=== PATIENT | female | born 1960 | race Caucasian/White ===

== ENCOUNTER → 2016-04-12 | Outpatient (CLI) | payer OTHER, BC | LOC: FIMAGING 12:01 | PROVIDERS: ATTEND Internal Medicine Hematology & Oncology | DX: Z12.31 Encounter for screening mammogram for malignant neoplasm of breast (principal); Z80.3 Family history of malignant neoplasm of breast | CPT/HCPCS: G0202 ==

== ENCOUNTER 2016-10-10 09:32 | Inpatient (IN) | payer BC, OTHER ==
[~2016-10-10 09:32] MED LIST: cefOXitin SODIUM 2 GM in D5W 100 ML IV ONE
[2016-10-10] MEDS ORDERED: LIDOCAINE 1% 2 ML INJ ID PRN (10:01)
[2016-10-10] MEDS ORDERED: LR 1,000 ML IV ONE (10:01)
--- NOTE | 2016-10-10 10:34 | PDHPUP ---
History & Physical Update H&P update statement: This history and physical update is based on an assessment of the patient which was completed after admission or registration (within 24 hours), but prior to the surgery/procedure. H&P update: H&P reviewed & patient examined, no change in patient's condition since H&P completed
[2016-10-10] MEDS: NICOTINE 14 MG/24 HR PATCH TD SCH (10:49)
[2016-10-10 11:16] LABS: ADD DIFF? YES; ADD MORPH? NO; ADD SCAN? NO; ATYPICAL LYMPHOCYTE FLAG 0 (0-99); FRAGMENT RBC FLAG 0 (0-99); HEMATOCRIT 45.3 % (38.0-47.0); HEMOGLOBIN 15.5 g/dL (12.6-16.3); LEFT SHIFT FLG 0 (0-99); LIPEMIA HEMOLYSIS FLAG 90 (0-99); MEAN CELL HEMOGLOBIN 33.3 pg (27.9-34.1); MEAN CELL HEMOGLOBIN CONCENTR. 34.2 g/dL (32.4-36.7); MEAN CELL VOLUME 97.2 fL (81.5-99.8); MEAN PLATELET VOLUME 10.2 fL (8.7-11.7); PLATELET CLUMPS FLAG 10 (0-99); PLATELET COUNT 259 10^3/uL (150-400); RED BLOOD CELL COUNT 4.66 10^6/uL (4.18-5.33); RED CELL DISTRIBUTION WIDTH 14.6 % (11.5-15.2)
[2016-10-10 11:35] LABS: ALANINE AMINOTRANSFERASE 56 IU/L (9-52); ALBUMIN 4.8 g/dL (3.5-5.0); ALKALINE PHOSPHATASE 128 IU/L (38-126); ANION GAP 15 mEq/L (8-16); ASPARTATE AMINOTRANSFERASE 31 IU/L (14-46); BILIRUBIN,TOTAL 0.8 mg/dL (0.1-1.4); CALCIUM 10.1 mg/dL (8.5-10.4); CARBON DIOXIDE 21 mEq/l (22-31); CHLORIDE 106 mEq/L (97-110); CREATININE 0.5 mg/dL (0.6-1.0); GLOMERULAR FILTRATION RATE > 60; GLUCOSE 141 mg/dL (70-100); SODIUM 142 mEq/L (134-144); TOTAL PROTEIN 7.9 g/dL (6.3-8.2)
[2016-10-10 11:46] LABS: PLATELET ESTIMATE ADEQUATE (ADEQ)
--- NOTE | 2016-10-10 12:00 | PDANEPAE ---
ANE History of Present Illness multiple GIST tumors ANE Past Medical History - Cardiovascular History Hx Hypertension: No Hx Arrhythmias: No Hx Chest Pain: No Hx Coronary Artery / Peripheral Vascular Disease: No Hx CHF / Valvular Disease: No Hx Palpitations: No - Pulmonary History Hx COPD: No Hx Asthma/Reactive Airway Disease: No Hx Recent Upper Respiratory Infection: No Hx Oxygen in Use at Home: No Hx Sleep Apnea: No Sleep Apnea Screening Result - Last Documented: Negative - Neurologic History Hx Cerebrovascular Accident: No Hx Seizures: No Hx Dementia: No Neurologic History Comment: FIBROMYALGIA. 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 24 YEARS AGO [facility] - Other Health History Other Health History: RASH UNDER BOTH BREASTS - Chronic Pain History Chronic Pain: Yes (FIBROMYALGIA,NEEUROPATHY IN FEET &HANDS,BILAT HIP PAIN) - Surgical History Prior Surgeries: 1996 HYSTERECTOMY. 2010 REMOVAL OF ABDOMINAL TUMOR BY DR JAMA AND 2013 ANE Review of Systems Review of systems is: negative - Exercise capacity Exercise capacity: >=4 METS METS (RN): 4 METS ANE Patient History - Allergies Allergies/Adverse Reactions: gabapentin Allergy (Severe, Verified 10/06/16 16:16) ANASARCA shellfish derived Allergy (Verified 10/10/16 10:43) - Home Medications Home Medications: Multivitamins [Multivitamin (*)] 07/14/13 [Last Taken 09/29/16] Fentanyl 10/06/16 [Last Taken 10/08/16 15:00] SUBOXONE 2 MG-0.5 MG TABLET 10/06/16 [Last Taken 10/07/16] Tasigna 10/06/16 [Last Taken 10/10/16 04:10] - NPO status NPO Since - Liquids (Date): 10/10/16 NPO Since - Liquids (Time): 04:30 NPO Since - Solids (Date): 10/09/16 NPO Since - Solids (Time): 12:00 - Anes Hx Anes Hx: no prior problems - Smoking Hx Smoking Status: Heavy smoker - Alcohol Use Alcohol Use: None - Family Anes Hx Family Hx Anesthesia Complications: NONE ANE Labs/Vital Signs - Labs Result Diagrams: 10/10/16 11:05 10/10/16 11:05 - Vital Signs Blood Pressure: 142/84 Heart Rate: 81 Respiratory Rate: 20 O2 Sat (%): 95 Height: 175.26 cm Weight: 107.955 kg ANE Physical Exam - Airway Neck exam: FROM Mallampati Score: Class 2 Mouth exam: dentures - Pulmonary Pulmonary: no respiratory distress - Cardiovascular Cardiovascular: regular rate and rhythym - ASA Status ASA Status: III ANE Anesthesia Plan Anesthesia Plan: general endotracheal anesthesia Regional Anesthesia: continuous NB (CTE)
[2016-10-10] MEDS ORDERED: MIDAZOLAM 2 MG/2 ML VIAL IVP ONE (12:05)
[2016-10-10] MEDS ORDERED: fentaNYL 100 MCG/2 ML INJ ONE ×6 (12:09→18:33)
[2016-10-10] MEDS ORDERED: BUPIVACAINE 0.5% 30 ML SDV ONE (12:15)
[2016-10-10] MEDS ORDERED: BACITRACIN 50,000 UNITS/10 ML SYR IRR ONE (12:15)
[2016-10-10] MEDS ORDERED: POLYMYXIN B SULFATE 500,000 UNIT/10 ML SYR IRR ONE (12:15)
[2016-10-10] MEDS ORDERED: LIDOCAINE 2% 100 MG/5 ML SYR ONE (13:55)
[2016-10-10] MEDS ORDERED: ROCURONIUM 100 MG/10 ML VIAL ONE (13:55)
[2016-10-10] MEDS ORDERED: PROPOFOL 200 MG/20 ML VIAL ONE (13:56)
[2016-10-10] MEDS ORDERED: DEXAMETHASONE 4 MG/ML VIAL ONE (14:50)
[2016-10-10] MEDS ORDERED: HYDROmorphONE/DILAUDID 2 MG/ML INJ ONE (14:56)
[2016-10-10] MEDS ORDERED: BUPIVACAINE 0.25% 30 ML SDV ONE (15:11)
[2016-10-10] MEDS ORDERED: AMINOCAPROIC ACID 5 GM/20 ML VIAL IV ONE (15:30)
[2016-10-10] MEDS ORDERED: ROCURONIUM 50 MG/5 ML VIAL ONE (16:53)
[2016-10-10] MEDS ORDERED: PHENYLEPHRINE HCL 100 MCG/ML SYR ONE ×2 (16:53)
[2016-10-10] MEDS ORDERED: VASOPRESSIN 20 UNIT/ML VIAL ONE (16:57)
[2016-10-10] MEDS ORDERED: ONDANSETRON 4 MG/2 ML VIAL ONE (17:36)
[2016-10-10] MEDS ORDERED: HYDROmorphONE/DILAUDID 1 MG/ML INJ IVP PRN (17:56)
[2016-10-10] MEDS ORDERED: LABETALOL HCL 5 MG/ML 20 ML MDV IVP PRN (17:56)
[2016-10-10] MEDS ORDERED: fentaNYL 100 MCG/2 ML INJ IVP PRN (17:56)
[2016-10-10] MEDS ORDERED: ALBUTEROL 3 ML DEYVIAL IH PRN (17:56)
[2016-10-10] MEDS ORDERED: PROMETHAZINE HCL 25 MG/ML INJ IVP PRN (17:56)
[2016-10-10] MEDS ORDERED: NALOXONE HCL 0.4 MG/ML INJ IVP PRN ×2 (17:56→17:58)
[2016-10-10] MEDS ORDERED: MEPERIDINE 25 MG/ML SYR IVP PRN (17:56)
[2016-10-10] MEDS ORDERED: ONDANSETRON 4 MG/2 ML VIAL IVP PRN ×2 (17:56→18:04)
[2016-10-10] MEDS ORDERED: NARCOTIC DRIP BAG-TOTAL ALL TYPES EP PRN (17:58)
[2016-10-10] MEDS ORDERED: diphenhydrAMINE 25 MG CAP PO PRN (18:04)
--- NOTE | 2016-10-10 18:39 | POSTOPPROG ---
Post Op Note Date of Operation: 10/10/16 Surgeon: Marlon Reynolds Wax Blender: FAITH Anesthesiologist: JESUS Anesthesia: GET(General Endotracheal) Pre-op Diagnosis: GIST TUMOR OF ABDOMEN, RECURRENT Post-op Diagnosis: SAME Indication: PAIN, NONRESPONSIVE TO CHEMO Procedure: RESECTION OF MESENTERIC GIST TUMOR WITH DISSECTION AND PRESERVATION OF SMA/ Findings: 25 CM MASS IN ROOT OF MESENTERY INVOLVING SMALL BOWELL Inf/Abcess present in the surg proc area at time of surgery?: No Depth: Organ Space EBL: Greater than 1000 Complications: 0 Drains: Wilfredo Rai Specimen(s): MESENTERIC TUMOR AND SMALL INTESTINE
--- NOTE | 2016-10-10 18:51 | POSTANESTH ---
Post Anesthetic Evaluation Cardiovascular Status: Tx Hyper/Hypo-tension Respiratory Status: Normal, Stable Level of Consciousness/Mental Status: Can Participate in Eval Pain Control: Adequate, Prn Tx Ordered Nausea/Vomiting Control: Adequate, Prn Tx Ordered Complications Possibly Related to Anesthesia: None Noted (bolusing fluid, checkin cbc for hypotension)
[2016-10-10 18:54] LABS: HEMATOCRIT 29.5 % (38.0-47.0); HEMOGLOBIN 9.1 g/dL (12.6-16.3); MEAN CELL HEMOGLOBIN 32.7 pg (27.9-34.1); MEAN CELL HEMOGLOBIN CONCENTR. 30.8 g/dL (32.4-36.7); MEAN CELL VOLUME 106.1 fL (81.5-99.8); RED BLOOD CELL COUNT 2.78 10^6/uL (4.18-5.33); RED CELL DISTRIBUTION WIDTH 14.6 % (11.5-15.2)
[2016-10-10] MEDS: D5W 1/2 NS W/ 20 KCl/L 1,000 ML IV SCH (21:30)
[2016-10-10] MEDS: METOCLOPRAMIDE 10 MG/2 ML VIAL IVP SCH (23:43)
[2016-10-11] MEDS: D5W 1/2 NS W/ 20 KCl/L 1,000 ML IV SCH (05:28)
--- NOTE | 2016-10-11 05:49 | GOP ---
[f rep st] OPERATIVE REPORT DATE OF OPERATION: 10/10/2016 SURGEON: Marlon Reynolds MD FACILITIES OPERATIONS TECHNICIAN: SARAY Jiménez ANESTHESIOLOGIST: Dr. Ashford. 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 POSTOPERATIVE DIAGNOSIS: Recurrent GIST tumor of the abdomen with pain. PROCEDURE PERFORMED: Resection of a massive mesenteric tumor with associated small bowel with dissection and preservation of the superior mesenteric artery and ventral hernia repair. FINDINGS: The patient was found to have a 25 cm multilobulated GIST tumor arising from the root of the mesentery involving the proximal small bowel near the ligament of Treitz and associated with an area that had a previous resection. It was separate from the superior mesenteric artery. There were some other intraabdominal nodules consistent with GIST tumors and some liver METS consistent with GIST tumors. DESCRIPTION OF PROCEDURE: Patient taken to the operating room where she received satisfactory general endotracheal anesthesia by Dr. Ashford, placed in the supine position. She also had an epidural placed. A midline abdominal incision was made and carried carefully through a previous old incision. Two separate ventral hernias were encountered and these were dissected free and reduced. Omentum was taken down. The abdomen was carefully entered until the omentum was completely free and could be eviscerated. The small bowel was eviscerated and tumor was identified in the root of the mesentery. Tumor was elevated up and the superior mesenteric artery was identified, appeared to be separate from the tumor, although close. The tumor was elevated up. The mesentery was opened. The tumor was freed up from the small bowel mesentery including up to the area of the ligament of Treitz. Tumor was dissected off the transverse mesocolon without any evidence of invasion of the mesocolon. The colon was preserved and intact. Tumor was freed up circumferentially and elevated up as much as possible. It was carefully dissected away from the superior mesenteric artery using the Harmonic Scalpel and/or vascular staplers until the tumor could be elevated above the retroperitoneum. The small bowel was then divided proximally near the ligament of Treitz and distally below the tumor. This was done with a BHAVIN stapler. Specimen was removed. Hemostasis was assured. Multiple mesenteric vessels were oversewn with 3-0 silk sutures for hemostasis, and the bowel remained viable with a good pulse in the mesenteric vessels and good Doppler flow in the small bowel wall. An additional short piece of small bowel was removed with a BHAVIN stapler to assure the best vascularity. Wound was copiously irrigated. Hemostasis was assured. Small bowel anastomosis was then done in an end-to-side manner in 2 layer fashion with 3-0 silks for the anterior and posterior layers and a running inner layer of 3-0 Vicryl. This anastomosis was right at the ligament of Treitz and involved some bowel that was previously resected. There was excellent bleeding at the transection point. Anastomosis created a good 2 fingerbreadth opening. Wound was again irrigated. Hemostasis was assured. No other major findings were encountered. She tolerated procedure well. Blood loss was significant, approximately 1500 cc. A 15 round silicone CAMPOS drain was brought out through separate stab incision and placed adjacent to the root of the mesentery and secured to the skin with a 2-0 silk suture. Fascia was closed with a running #1 PDS suture. The subcu drain was brought out through a separate stab incision and secured to the skin with silk suture and the skin was closed with skin deborah. She tolerated the procedure reasonably well, was taken to the recovery room in good condition. There were no complications. Blood loss was 1500 mL. /[id number]/MODL MTDD
[2016-10-11 06:09] LABS: ADD DIFF? YES; ADD MORPH? NO; ATYPICAL LYMPHOCYTE FLAG 0 (0-99); FRAGMENT RBC FLAG 0 (0-99); HEMATOCRIT 37.1 % (38.0-47.0); HEMOGLOBIN 12.7 g/dL (12.6-16.3); LEFT SHIFT FLG 30 (0-99); LIPEMIA HEMOLYSIS FLAG 90 (0-99); MEAN CELL HEMOGLOBIN 32.6 pg (27.9-34.1); MEAN CELL HEMOGLOBIN CONCENTR. 34.2 g/dL (32.4-36.7); MEAN CELL VOLUME 95.1 fL (81.5-99.8); MEAN PLATELET VOLUME 10.6 fL (8.7-11.7); PLATELET CLUMPS FLAG 10 (0-99); PLATELET COUNT 253 10^3/uL (150-400); RED CELL DISTRIBUTION WIDTH 17.2 % (11.5-15.2)
[2016-10-11 06:13] LABS: ADD SCAN? NO
[2016-10-11 06:25] LABS: PLATELET ESTIMATE ADEQUATE (ADEQ)
[2016-10-11 06:26] LABS: TOXIC GRANULATION PRESENT
[2016-10-11 06:28] LABS: ALANINE AMINOTRANSFERASE 109 IU/L (9-52); ALBUMIN 2.6 g/dL (3.5-5.0); ALKALINE PHOSPHATASE 100 IU/L (38-126); ANION GAP 8 mEq/L (8-16); ASPARTATE AMINOTRANSFERASE 122 IU/L (14-46); BILIRUBIN,TOTAL 1.7 mg/dL (0.1-1.4); BILIRUBIN-UNCONJUGATED 0.7 mg/dL (0.0-1.1); CARBON DIOXIDE 16 mEq/l (22-31); CHLORIDE 113 mEq/L (97-110); CREATININE 0.9 mg/dL (0.6-1.0); GLOMERULAR FILTRATION RATE > 60; GLUCOSE 238 mg/dL (70-100); POTASSIUM 5.5 mEq/L (3.5-5.2); SODIUM 137 mEq/L (134-144); TOTAL PROTEIN 4.9 g/dL (6.3-8.2)
[2016-10-11 06:29] LABS: ADD DIFF? YES; ADD MORPH? NO; ATYPICAL LYMPHOCYTE FLAG 0 (0-99); FRAGMENT RBC FLAG 0 (0-99); HEMATOCRIT 35.2 % (38.0-47.0); HEMOGLOBIN 11.2 g/dL (12.6-16.3); LEFT SHIFT FLG 10 (0-99); LIPEMIA HEMOLYSIS FLAG 80 (0-99); MEAN CELL HEMOGLOBIN 32.1 pg (27.9-34.1); MEAN CELL HEMOGLOBIN CONCENTR. 31.8 g/dL (32.4-36.7); MEAN CELL VOLUME 100.9 fL (81.5-99.8); MEAN PLATELET VOLUME 11.7 fL (8.7-11.7); PLATELET CLUMPS FLAG 30 (0-99); PLATELET COUNT 117 10^3/uL (150-400); RED BLOOD CELL COUNT 3.49 10^6/uL (4.18-5.33); RED CELL DISTRIBUTION WIDTH 17.9 % (11.5-15.2)
[2016-10-11 06:31] LABS: ADD SCAN? NO
[2016-10-11] MEDS: METOCLOPRAMIDE 10 MG/2 ML VIAL IVP SCH ×3 (06:50→17:50)
[2016-10-11 07:00] LABS: PLATELET ESTIMATE DECREASED (ADEQ)
[2016-10-11 07:01] LABS: MACROCYTES 1+
[2016-10-11] MEDS: HYDROmorph 10MCG/ML&BUP 0.1% in 100ML NS EP SCH ×2 (07:36→21:11)
[2016-10-11 07:39] LABS: INR 1.11 (0.83-1.16); PROTIME(PATIENT) 14.2 SEC (12.0-15.0)
[2016-10-11] MEDS: ERTAPENEM 1 GM in NS 100 ML IV SCH (08:55)
[2016-10-11] MEDS: NICOTINE 14 MG/24 HR PATCH TD SCH (08:55)
[2016-10-11] MEDS: DC NARCS MISC SCH (08:58)
[2016-10-11] MEDS: REGARDING ANTICOAG MISC SCH (08:58)
--- NOTE | 2016-10-11 09:25 | POSTANESTH ---
Post Anesthetic Evaluation Cardiovascular Status: Normal, Stable Respiratory Status: Normal, Stable Level of Consciousness/Mental Status: Can Participate in Eval Pain Control: Adequate, Prn Tx Ordered Nausea/Vomiting Control: Adequate, Prn Tx Ordered Complications Possibly Related to Anesthesia: None Noted (POD1, excellent PCEA analgesia, no changes, hypotension resolved after 2 units PRBC, would encourage ambulation/mobilization. Have cautioned RN to watch for S/S or opiate withdrawl. Anticipate 3-4 days PCEA duration.)
[2016-10-11] MEDS: NS 1,000 ML IV SCH ×2 (09:35→17:43)
--- NOTE | 2016-10-11 16:37 | GCON ---
[f rep st] CONSULTATION CRITICAL CARE CONSULTATION DATE OF CONSULTATION: 10/11/2016 HISTORY OF PRESENT ILLNESS: The patient is a 56-year-old obese female, who has been having difficult y with a GIST tumor that has been unresponsive to chemotherapy and was causing significant abdominal pain. Subsequently, she underwent resection of a 25 cm tumor for palliative purposes yesterday by Dr Debbie Reynolds. Surgery was complicated by significant blood loss with an EBL estimated at greater than 100 0. She received 2 units of pack cells, though she did experience some hypotension. Subsequently, darrian currie recovered and did not require ongoing pressors. Today, she says her pain is well controlled, and her blood pressure has normalized and she is not hav ing any other difficulties at this time. REVIEW OF SYSTEMS: Otherwise negative. PAST MEDICAL HISTORY: Includes the GIST tumor as described above, fibromyalgia. PAST SURGICAL HISTORY: Includes remote bowel resections, cholecystectomy, and hysterectomy. SOCIAL HISTORY: She is a remote smoker but none recently. No significant alcohol. FAMILY HISTORY: Includes breast cancer. MEDICATIONS: At this time include ertapenem, Dilaudid, Reglan, Zofran, normal saline. PHYSICAL EXAMINATION: VITAL SIGNS: Her blood pressure was 104/67, heart rate was 112, respirations 13, oxygen saturation 94% on 2 L, and she was afebrile. GENERAL: She was awake and alert, in no gerald arent distress, and able to speak in full sentences without using accessory muscles for breathing. H EENT: Pupils were equally round, reactive to light, nonicteric, and noninjected. Mucous membranes w ere moist without erythema or exudate. NECK: Supple without adenopathy or jugular vein distention. LUNGS: Breath sounds were clear to auscultation bilaterally without wheezes, rubs, or rales. HEART : Sounds were distant, but are regular rate and rhythm without murmurs, rubs, or gallops. ABDOMEN: Soft and nondistended with hypoactive bowel sounds. EXTREMITIES: Show no clubbing, cyanosis, or ed betzaida. NEUROLOGIC: Nonfocal, including cranial nerves and deep tendon reflexes. OBJECTIVE DATA: Her white count was 43.6, hematocrit of 35, platelets of 117. INR 1.11. Sodium was 137, potassium 5.5, chloride 113, bicarb 16, BUN 16, creatinine 0.9, glucose 238. Total bilirubin 1 .7, alkaline phosphatase was 100, AST 122, ALT 109. ASSESSMENT AND PLAN: 1. Hypotension in a postoperative patient likely due to blood loss. Little is here to support acute coronary syndromes or adrenal insufficiency or sepsis. She recovered quickly with blood products an d IV fluids and has adequate urine output at this time. Should continue to follow her in the intensi ve care unit. 2. Elevated white blood cell count. Presumably this is related to her surgery and complications the reof. Her white count has come down nicely. She is on ertapenem for broad-spectrum coverage. Blood cultures are pending, but negative to date. Should recheck this in the morning. 3. Relative thrombocytopenia. This is probably due to consumptive coagulopathy and should recover o n its own but will have to follow this closely. 4. Elevated liver enzymes. This is likely due to her hypotension as it is only very mildly elevated but requires ongoing followup. /[id number]/MODL
--- NOTE | 2016-10-11 17:46 | SOAPPROG ---
SOAP Progress Note Assessment/Plan: Assessment/Plan: 56 Y F s/p laparotomy with resection of large LUQ GIST tumor requiring small bowel resection, POD#1. Seen by both myself and Dr. Reynolds earlier today on separate occasions. NG was "coughed out" this am. Patient refusing replacement. Has no N/V. Tachycardic this am. Improved. 2/2 pain? H&H ok, uop ok, O2 needs ok. Continue to follow. Pain seems controlled with epidural. Continue min until epidural removal. No chemical VTE ppx--bleeding risk, epidural. Hyperkalemia. Changed IVF to NS. Wounds ok. Drains serosanguinous. One drain with high output now slowed--likely residual irrigation fluid, did not appear very sanguinous. S: sitting oob in chair. no n/v. thinks she had flatus. eager for ice chips. 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
[2016-10-12] MEDS: METOCLOPRAMIDE 10 MG/2 ML VIAL IVP SCH ×5 (00:09→23:45)
[2016-10-12] MEDS: NS 1,000 ML IV SCH ×2 (00:10→08:21)
[2016-10-12] MEDS: HYDROmorph 10MCG/ML&BUP 0.1% in 100ML NS EP SCH ×2 (06:07→11:18)
--- NOTE | 2016-10-12 08:41 | SOAPPROG ---
SOAP Progress Note Assessment/Plan: Assessment: 56 Y F s/p laparotomy with resection of large LUQ GIST tumor requiring small bowel resection, POD#2. NGT out last night per patient. She is refusing replacement. No nausea or vomiting. Tolerating ice chips and sips. Adv to clears Continues to be tachycardic today. Most likely secondary to pain. H/H ok, UOP ok , O2 needs ok. Cont pain control with IV dilauded and epidural SCD ppx. No chemical ppx 2/2 bleeding risk and epidural Wounds with clean/dry dressing intact. Cont CAMPOS drains. S: sitting up in chair. passing flatus, no BM. Tolerating ice chips without N/ V. No SOB. Complaining of some itchiness which she attributes to a tape sensitivity. Some back pain and incisional pain. O: Afebrile Alert, NAD Lungs CTAB, no increased WOB RRR MMM Abdomen soft. Appropriately TTP along incision. + BS [address] Emptied right before she was seen. 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
[2016-10-12] MEDS: NICOTINE 14 MG/24 HR PATCH TD SCH (09:03)
[2016-10-12] MEDS: ERTAPENEM 1 GM in NS 100 ML IV SCH (09:38)
--- NOTE | 2016-10-12 09:56 | POSTANESTH ---
Post Anesthetic Evaluation Cardiovascular Status: Normal, Stable Respiratory Status: Normal, Stable Level of Consciousness/Mental Status: Can Participate in Eval Pain Control: Inadeq, Add Tx Required Nausea/Vomiting Control: Adequate, Prn Tx Ordered Complications Possibly Related to Anesthesia: None Noted (POD 2, pt with worse pain cpntrol, will bolus epidural and increase basal rate. plan removal tomorrow. Site C/d/i)
[2016-10-12] MEDS: HYDROmorphONE/DILAUDID 2 MG/ML INJ IVP PRN ×3 (13:14→21:41)
[2016-10-12] MEDS: DC NARCS MISC SCH (13:59)
[2016-10-12] MEDS: REGARDING ANTICOAG MISC SCH (14:00)
[2016-10-12 15:00] LABS: ANION GAP 6 mEq/L (8-16); CALCIUM 6.8 mg/dL (8.5-10.4); CARBON DIOXIDE 17 mEq/l (22-31); CHLORIDE 115 mEq/L (97-110); CREATININE 0.4 mg/dL (0.6-1.0); GLOMERULAR FILTRATION RATE > 60; GLUCOSE 148 mg/dL (70-100); POTASSIUM 3.4 mEq/L (3.5-5.2); SODIUM 138 mEq/L (134-144)
[2016-10-13] MEDS: HYDROmorph 10MCG/ML&BUP 0.1% in 100ML NS EP SCH ×4 (01:07→23:18)
[2016-10-13] MEDS: NS 1,000 ML IV SCH ×3 (02:26→20:46)
[2016-10-13] MEDS: METOCLOPRAMIDE 10 MG/2 ML VIAL IVP SCH ×4 (05:52→23:18)
[2016-10-13] MEDS: HYDROmorphONE/DILAUDID 2 MG/ML INJ IVP PRN ×2 (05:53→09:07)
[2016-10-13] MEDS: NICOTINE 14 MG/24 HR PATCH TD SCH (09:07)
[2016-10-13] MEDS: ERTAPENEM 1 GM in NS 100 ML IV SCH (09:08)
[2016-10-13] MEDS: DC NARCS MISC SCH (10:37)
[2016-10-13] MEDS: REGARDING ANTICOAG MISC SCH (10:37)
[2016-10-13] MEDS ORDERED: HYDROmorphONE/DILAUDID 1 MG/ML INJ IVP PRN (11:06)
[2016-10-13] MEDS: HYDROmorphONE/DILAUDID 1 MG/ML INJ IVP PRN ×2 (14:11→18:32)
[2016-10-13] MEDS ORDERED: ALTEPLASE 2 MG VIAL IVP PRN (17:22)
--- NOTE | 2016-10-13 17:39 | SOAPPROG ---
SOAP Progress Note Assessment/Plan: Assessment: DOING WELL POSTOP DAY 3. 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
[2016-10-13 21:07] LABS: % IMMATURE GRANULYOCYTES 0.9 % (0.0-1.1); ABSOLUTE IMMATURE GRANULOCYTES 0.18 10^3/uL (0.00-0.10); ABSOLUTE NRBC COUNT 0.03 10^3/uL (0-0.01); ADD DIFF? NO; ADD MORPH? NO; ADD SCAN? NO; ATYPICAL LYMPHOCYTE FLAG 10 (0-99); FRAGMENT RBC FLAG 0 (0-99); HEMATOCRIT 21.9 % (38.0-47.0); HEMOGLOBIN 7.4 g/dL (12.6-16.3); LEFT SHIFT FLG 0 (0-99); LIPEMIA HEMOLYSIS FLAG 90 (0-99); MEAN CELL HEMOGLOBIN 32.6 pg (27.9-34.1); MEAN CELL HEMOGLOBIN CONCENTR. 33.8 g/dL (32.4-36.7); MEAN CELL VOLUME 96.5 fL (81.5-99.8); MEAN PLATELET VOLUME 9.9 fL (8.7-11.7); NRBC-AUTO% 0.1 % (0.0-0.2); PLATELET CLUMPS FLAG 0 (0-99); PLATELET COUNT 168 10^3/uL (150-400); RED BLOOD CELL COUNT 2.27 10^6/uL (4.18-5.33); RED CELL DISTRIBUTION WIDTH 15.7 % (11.5-15.2)
[2016-10-13 21:50] LABS: ALANINE AMINOTRANSFERASE 193 IU/L (9-52); ALBUMIN 2.4 g/dL (3.5-5.0); ALKALINE PHOSPHATASE 74 IU/L (38-126); AMYLASE < 30 IU/L (30-110); ANION GAP 8 mEq/L (8-16); ASPARTATE AMINOTRANSFERASE 51 IU/L (14-46); BILIRUBIN,TOTAL 0.4 mg/dL (0.1-1.4); BILIRUBIN-CONJUGATED 0.3 mg/dL (0.0-0.5); BILIRUBIN-UNCONJUGATED 0.1 mg/dL (0.0-1.1); CALCIUM 7.9 mg/dL (8.5-10.4); CARBON DIOXIDE 26 mEq/l (22-31); CHLORIDE 106 mEq/L (97-110); CREATININE 0.5 mg/dL (0.6-1.0); GLOMERULAR FILTRATION RATE > 60; GLUCOSE 98 mg/dL (70-100); POTASSIUM 3.2 mEq/L (3.5-5.2); SODIUM 140 mEq/L (134-144); TOTAL PROTEIN 4.4 g/dL (6.3-8.2)
[2016-10-14] MEDS: NS 1,000 ML IV SCH (04:47)
[2016-10-14] MEDS: METOCLOPRAMIDE 10 MG/2 ML VIAL IVP SCH ×4 (05:53→23:54)
[2016-10-14] MEDS: HYDROmorph 10MCG/ML&BUP 0.1% in 100ML NS EP SCH (07:19)
--- NOTE | 2016-10-14 09:38 | SOAPPROG ---
SOAP Progress Note Assessment/Plan: Assessment: DOING WELL POSTOP DAY 3. / AFEBRILE / TOLERATING LIQUIDS/ WOUND OKAY/ ABDOMEN SOFT MINIMAL DRAINAGE PATH SHOWS GIST TUMOR Plan: ADVANCE DIET 10/13/16 17:37 10/14/16 09:37 DOING WELL/ TOLERATING PO/ JPS MINIMAL DRAINAGE/ AFEBRILE/ HCT22/ PLAN TX 2 UNITS Objective: Vital Signs Temp Pulse Resp BP Pulse Ox 37.2 C 96 18 127/76 H 99 10/14/16 08:00 10/14/16 08:00 10/14/16 08:00 10/14/16 08:00 10/14/16 08:00 Laboratory Results 10/13/16 21:00 10/13/16 21:00 10/13/16 10/14/16 10/15/16 05:59 05:59 05:59 Intake Total 3550 3101 1404 Output Total 2473 1805 1490 Balance 1077 1296 -86 PT 14.2 SEC (12.0-15.0) 10/11/16 06:05 INR 1.11 (0.83-1.16) 10/11/16 06:05 ICD10 Worksheet Patient Problems: Problems Problem Status Onset 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
--- NOTE | 2016-10-14 09:45 | POSTANESTH ---
Post Anesthetic Evaluation Cardiovascular Status: Normal, Stable Respiratory Status: Normal, Stable Level of Consciousness/Mental Status: Can Participate in Eval Pain Control: Adequate, Prn Tx Ordered Nausea/Vomiting Control: Adequate, Prn Tx Ordered Complications Possibly Related to Anesthesia: None Noted (POD 3, will D/C CTE today, oxy and IV dilaudid available, thanks for consult)
[2016-10-14] MEDS: NICOTINE 14 MG/24 HR PATCH TD SCH (10:08)
[2016-10-14] MEDS: oxyCODONE IR 5 MG TAB PO PRN ×4 (10:10→22:41)
[2016-10-14] MEDS: ERTAPENEM 1 GM in NS 100 ML IV SCH (10:11)
[2016-10-14] MEDS: DC NARCS MISC SCH (18:33)
[2016-10-14] MEDS: REGARDING ANTICOAG MISC SCH (18:33)
[2016-10-14] MEDS: HYDROmorphONE/DILAUDID 1 MG/ML INJ IVP PRN (20:45)
[2016-10-15] MEDS: HYDROmorphONE/DILAUDID 1 MG/ML INJ IVP PRN ×5 (01:02→19:58)
[2016-10-15] MEDS: oxyCODONE IR 5 MG TAB PO PRN ×5 (04:48→21:56)
[2016-10-15] MEDS: METOCLOPRAMIDE 10 MG/2 ML VIAL IVP SCH ×3 (05:31→17:55)
[2016-10-15] MEDS: NICOTINE 14 MG/24 HR PATCH TD SCH (08:26)
[2016-10-15] MEDS: ERTAPENEM 1 GM in NS 100 ML IV SCH (08:27)
--- NOTE | 2016-10-15 09:59 | SOAPPROG ---
SOAP Progress Note Assessment/Plan: Assessment: DOING WELL POSTOP DAY 3. / AFEBRILE / TOLERATING LIQUIDS/ WOUND OKAY/ ABDOMEN SOFT MINIMAL DRAINAGE PATH SHOWS GIST TUMOR Plan: ADVANCE DIET 10/13/16 17:37 10/14/16 09:37 DOING WELL/ TOLERATING PO/ JPS MINIMAL DRAINAGE/ AFEBRILE/ HCT22/ PLAN TX 2 UNITS 10/15/16 09:57 more pain today wo epidural/ wound ok/ afebrile/ vs stable/ labs stable/ drainage serous/ eating/ + flatus home 1-2 days Objective: Vital Signs Temp Pulse Resp BP Pulse Ox 37.4 C 83 20 115/72 94 10/15/16 07:32 10/15/16 07:32 10/15/16 07:32 10/15/16 07:32 10/15/16 07:32 Laboratory Results 10/13/16 21:00 10/13/16 21:00 10/14/16 10/15/16 10/16/16 05:59 05:59 05:59 Intake Total 3101 2904 Output Total 1805 4120 390 Balance 1296 -1216 -390 PT 14.2 SEC (12.0-15.0) 10/11/16 06:05 INR 1.11 (0.83-1.16) 10/11/16 06:05 ICD10 Worksheet Patient Problems: Problems Problem Status Onset 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
--- NOTE | 2016-10-15 17:05 | ASMTCMCOM ---
CM Note CM Note Notes: Spoke w/pt re; dc poc. PT/OT recommend SNF at this time. Discussed w/pt she prefers to go home w/homecare but will go to SNF if necessary. She will lydia w/, CM to f/u in am. Date Signed: 10/12/2016 03:10 PM Electronically Signed By:Lorraine White
--- NOTE | 2016-10-15 17:08 | ASMTCMCOM ---
CM Note CM Note Notes: Spoke w/pt re; SNF. would like CM to send referrals to [facility] in [place] and [facility] in [place]. Date Signed: 10/13/2016 05:29 PM Electronically Signed By:Lorraine White
[2016-10-16] MEDS: HYDROmorphONE/DILAUDID 1 MG/ML INJ IVP PRN ×3 (00:09→10:03)
[2016-10-16] MEDS: METOCLOPRAMIDE 10 MG/2 ML VIAL IVP SCH ×5 (00:09→23:10)
[2016-10-16] MEDS: oxyCODONE IR 5 MG TAB PO PRN ×5 (02:21→23:10)
[2016-10-16] MEDS: ERTAPENEM 1 GM in NS 100 ML IV SCH (08:09)
[2016-10-16] MEDS: NICOTINE 14 MG/24 HR PATCH TD SCH (08:09)
--- NOTE | 2016-10-16 09:34 | SOAPPROG ---
SOAP Progress Note Assessment/Plan: Assessment/Plan: 56 Y F s/p laparotomy with resection of large LUQ GIST tumor requiring small bowel resection. Overall doing quite well at this point. Pain control is biggest issue holding us back from d/c. I had a rj discussion with Abigail regarding her history of opioid abuse and suboxone plans. She is committed to her sobriety. She feels that she has a great support network via family, friends, her suboxone doctor, and her community at [facility]. I left a message for Dr. Moses ([phone]) to discuss a plan. For now I'd like to transition to all oral pain meds. We will try oxycodone CR for baseline and oxycodone IR for breakthrough. S: sitting oob in chair. c/o pain. 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
--- NOTE | 2016-10-16 09:37 | SOAPPROG ---
SOAP Progress Note Assessment/Plan: Assessment: 56 Y F s/p laparotomy with resection of large LUQ GIST tumor requiring small bowel resection, POD#4. Path demonstrating Gist tumor Cont light diet Will look into longer term pain control. Pt on suboxone for that past 2 years. Wounds with C/D/I Cont CAMPOS drains. Dispo: to rehab once pain better controlled without IV meds S: Passing flatus and BM. Tolerating diet. No SOB. In considerable pain today that she attributes to her large midline abd incision. O: Afebrile Alert, NAD Lungs CTAB, no increased WOB RRR MMM Abdomen soft. TTP along incision. + BS Incision c/d/i with deborah in place. dressing removed today and left to air. [address] 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
[2016-10-16] MEDS: oxyCODONE CR 15 MG TAB PO SCH ×2 (10:03→20:32)
--- NOTE | 2016-10-16 13:11 | ASMTCMCOM ---
CM Note CM Note Notes: Spoke with Jodi from [facility] who accepts patient. PASRR completed and faxed to facility. [facility]NOR tomorrow pending pain control. Spoke with patient who agrees with the plan. Date Signed: 10/16/2016 01:10 PM Electronically Signed By:Iliana Hartman
[2016-10-16 14:28] LABS: % IMMATURE GRANULYOCYTES 1.2 % (0.0-1.1); ABSOLUTE IMMATURE GRANULOCYTES 0.23 10^3/uL (0.00-0.10); ABSOLUTE NRBC COUNT 0.02 10^3/uL (0-0.01); ADD DIFF? NO; ADD MORPH? NO; ADD SCAN? NO; ATYPICAL LYMPHOCYTE FLAG 10 (0-99); FRAGMENT RBC FLAG 0 (0-99); HEMATOCRIT 28.9 % (38.0-47.0); HEMOGLOBIN 9.6 g/dL (12.6-16.3); LEFT SHIFT FLG 0 (0-99); LIPEMIA HEMOLYSIS FLAG 80 (0-99); MEAN CELL HEMOGLOBIN 31.5 pg (27.9-34.1); MEAN CELL HEMOGLOBIN CONCENTR. 33.2 g/dL (32.4-36.7); MEAN CELL VOLUME 94.8 fL (81.5-99.8); MEAN PLATELET VOLUME 9.9 fL (8.7-11.7); NRBC-AUTO% 0.1 % (0.0-0.2); PLATELET CLUMPS FLAG 0 (0-99); PLATELET COUNT 267 10^3/uL (150-400); RED BLOOD CELL COUNT 3.05 10^6/uL (4.18-5.33); RED CELL DISTRIBUTION WIDTH 15.4 % (11.5-15.2)
[2016-10-16 14:58] LABS: ALANINE AMINOTRANSFERASE 69 IU/L (9-52); ALBUMIN 2.7 g/dL (3.5-5.0); ALKALINE PHOSPHATASE 74 IU/L (38-126); ANION GAP 8 mEq/L (8-16); ASPARTATE AMINOTRANSFERASE 18 IU/L (14-46); BILIRUBIN,TOTAL 0.5 mg/dL (0.1-1.4); CALCIUM 8.3 mg/dL (8.5-10.4); CARBON DIOXIDE 28 mEq/l (22-31); CHLORIDE 103 mEq/L (97-110); CREATININE 0.5 mg/dL (0.6-1.0); GLOMERULAR FILTRATION RATE > 60; GLUCOSE 86 mg/dL (70-100); POTASSIUM 2.9 mEq/L (3.5-5.2); SODIUM 139 mEq/L (134-144); TOTAL PROTEIN 4.7 g/dL (6.3-8.2)
[2016-10-16 22:22] VITALS: RESP 18
[2016-10-17] MEDS: oxyCODONE IR 5 MG TAB PO PRN ×3 (03:25→11:14)
[2016-10-17] MEDS: METOCLOPRAMIDE 10 MG/2 ML VIAL IVP SCH ×2 (05:39→11:12)
[2016-10-17 08:23] VITALS: BP 146/91; PULSE 86; TEMP 98.3; O2SAT 94
[2016-10-17] MEDS: NICOTINE 14 MG/24 HR PATCH TD SCH (09:02)
[2016-10-17] MEDS: oxyCODONE CR 15 MG TAB PO SCH (09:02)
[2016-10-17] MEDS: ERTAPENEM 1 GM in NS 100 ML IV SCH (09:02)
[2016-10-17 09:31] LABS: ANION GAP 9 mEq/L (8-16); CALCIUM 8.8 mg/dL (8.5-10.4); CARBON DIOXIDE 28 mEq/l (22-31); CHLORIDE 102 mEq/L (97-110); CREATININE 0.5 mg/dL (0.6-1.0); GLOMERULAR FILTRATION RATE > 60; GLUCOSE 124 mg/dL (70-100); POTASSIUM 2.9 mEq/L (3.5-5.2); SODIUM 139 mEq/L (134-144)
--- NOTE | 2016-10-17 09:53 | SOAPPROG ---
SOAP Progress Note Assessment/Plan: Assessment/Plan: 56 Y F s/p laparotomy with resection of large LUQ GIST tumor requiring small bowel resection. Pain controlled. D/c drains. D/c to SNF today. S: sitting oob in chair. has pain but meds are helping. 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
--- NOTE | 2016-10-17 10:03 | PDIAF ---
- Diagnosis Diagnosis: s/p resection of massive abdominal GIST tumor Code Status: Full Code - Medication Management Discharge Medications: Medications to Continue on Transfer Multivitamins [Multivitamin (*)] 1 each PO DAILY 07/14/13 [Last Taken 09/29/16] Nilotinib HCl [Tasigna] 200 mg PO BID 10/06/16 [Last Taken 10/10/16 04:10] fentaNYL [Duragesic 12 MCG Patch (*)] 12 mcg TD Q72H 10/06/16 [Last Taken 15:00] Ibuprofen [Motrin (*)] 200 mg PO DAILY PRN 10/11/16 [Last Taken Unknown] Prochlorperazine Maleate [Compazine 10mg (*)] 10 mg PO Q4-6PRN PRN 10/11/16 [ Last Taken Unknown] Nicotine [Nicoderm Cq 14 mg (*)] 14 mg TD DAILY #10 patch 10/17/16 [Last Taken Unknown] oxyCODONE CR [Oxycontin] 15 mg PO BID 10 Days #20 tab 10/17/16 [Last Taken Unknown] oxyCODONE IR [Oxycodone Ir (*)] 5 - 10 mg PO Q4HRS PRN #40 tab 10/17/16 [Last Taken Unknown] Discharge Medications: Refer to the Discharge Home Medication list for PRN reason. PICC Care - Routine: N/A - Orders Services needed: Registered Nurse, Certified Video System Repairer, Physical Therapy, Occupational Therapy Diet Recommendation: no restrictions on diet Diet Texture: Regular Texture Diet Patel: Not applicable Wound Care Instructions: Ok to shower. You will need to replace a gauze dressing or band aid over your drain sites until they are healed. Sutures/Huma Site: to be removed in office Activity/Weight Bearing Restrictions: No lifting greater than 15 lbs. Ok to shower. You will need to replace a gauze dressing or band aid over your drain sites until they are healed. - Follow Up Care Current Providers and Referrals: Marlon Reynolds MD [Medical Doctor] - follow up in 1 week NONE *PRIMARY CARE P,. [Primary Care Provider] -
[2016-10-17] MEDS ORDERED: fentaNYL 12 MCG PATCH TD SCH (10:15)
--- NOTE | 2016-10-17 10:17 | PDIAF ---
- Diagnosis Diagnosis: s/p resection of massive abdominal GIST tumor Code Status: Full Code - Medication Management Discharge Medications: Medications to Continue on Transfer Multivitamins [Multivitamin (*)] 1 each PO DAILY 07/14/13 [Last Taken 09/29/16] Nilotinib HCl [Tasigna] 200 mg PO BID 10/06/16 [Last Taken 10/10/16 04:10] fentaNYL [Duragesic 12 MCG Patch (*)] 12 mcg TD Q72H 10/06/16 [Last Taken 15:00] Ibuprofen [Motrin (*)] 200 mg PO DAILY PRN 10/11/16 [Last Taken Unknown] Prochlorperazine Maleate [Compazine 10mg (*)] 10 mg PO Q4-6PRN PRN 10/11/16 [ Last Taken Unknown] Nicotine [Nicoderm Cq 14 mg (*)] 14 mg TD DAILY #10 patch 10/17/16 [Last Taken Unknown] oxyCODONE IR [Oxycodone Ir (*)] 5 - 10 mg PO Q4HRS PRN #40 tab 10/17/16 [Last Taken Unknown] Discharge Medications: Refer to the Discharge Home Medication list for PRN reason. PICC Care - Routine: N/A - Orders Services needed: Registered Nurse, Certified Gas Engine Mechanic, Physical Therapy, Occupational Therapy Diet Recommendation: no restrictions on diet Diet Texture: Regular Texture Diet Patel: Not applicable Wound Care Instructions: Ok to shower. You will need to replace a gauze dressing or band aid over your drain sites until they are healed. Sutures/[place] Site: to be removed in office Activity/Weight Bearing Restrictions: No lifting greater than 15 lbs. Ok to shower. You will need to replace a gauze dressing or band aid over your drain sites until they are healed. - Follow Up Care Current Providers and Referrals: Marlon Reynolds MD [Medical Doctor] - follow up in 1 week NONE *PRIMARY CARE P,. [Primary Care Provider] -
--- NOTE | 2016-10-17 10:28 | GDS ---
[f rep st] DISCHARGE SUMMARY DISCHARGE DIAGNOSES: 1. 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 2. Other diagnoses include fibromyalgia, history of opioid abuse, now on Suboxone, and multiple remote abdominal surgeries. 3. Postoperative acute blood loss anemia due to large surgical blood loss, treated with 2 units of packed red blood cells and monitoring. PROCEDURES: Laparotomy with resection of massive mesenteric tumor with associated small-bowel, with dissection and preservation of the superior mesenteric artery, small-bowel resection, and ventral hernia repair with Dr. Marlon Reynolds. INTRAOPERATIVE FINDINGS: Patient was found to have a 25 cm multilobulated GIST tumor arising from the root of the mesentery involving the proximal small bowel near the ligament of Treitz and associated with an area that had previously been resected. It was from the superior mesenteric artery. There was some other intraabdominal nodules consistent with GIST tumors and some liver metastasis, also consistent with known GIST tumors. CONSULTATIONS: 1. Dr. Jason Baker, rig mechanic. 2. Dr. Kishan Ashford, anesthesia. HOSPITAL COURSE: The patient is a 56-year-old female who was found to have a recurrent GIST tumor in her abdomen, being watched by her oncologist. It started to cause her pain, and so she was sent to us for resection. She had previous resections in the past. She underwent the above procedure as described. The procedure was uncomplicated, and she tolerated it well. It was , however, a difficult resection. She did require blood products. The patient was initially cared for in the ICU. She remained stable, and she was transferred to med/surg status. Her epidural catheter was removed without event. She did require some adjustment in pain medicines for adequate pain control. Her diet was advanced. Her Patel catheter was discontinued, and her CAMPOS drains were removed. DISCHARGE INSTRUCTIONS: Patient was discharged to a subacute nursing facility with plans for outpatient followup in a week's time. I also discussed her pain medicine regimen with her Suboxone doctor, Dr. Moses. She will be following up with him in about a week and a half once she is off her long-acting narcotics. /[id number]/MODL and [id number], 10/18/16 111[address] [facility]
--- NOTE | 2016-10-18 16:33 | ASDISCHSUM ---
Discharge Information Plan Status:SNF Medically Cleared to Leave:10/17/2016 Discharge Date:10/17/2016 01:50 PM CM D/C Disposition:[facility] ADT D/C Disposition:[facility] Facility Projected Discharge Date:10/17/2016 11:00 AM Transportation at D/C: Discharge Delay Reason: Follow-Up Date:10/17/2016 11:00 AM Discharge Slot: Final Diagnosis: Placement Information Referral Type:*[facility]/SNF Referral ID:[id number] Provider Name:[facility] Address 1:[address] Phone Number: Address 2: Fax Number: [facility]:[place] Selection Factors: State:[place] Patient Contact Information Contact Name:GERSON Relationship: Address:[address] City:[place] Alternate Phone: State/Zip Code:[place] [address] Email: Financial Information Financial Class: Primary Plan Desc:MEDICARE INPATIENT Primary Plan Number:[id number] Secondary Plan Desc: Secondary Plan Number: Assessment Information [facility] Progress Note CM Note CM Note Notes: Spoke w/pt re; dc poc. PT/OT recommend SNF at this time. Discussed w/pt she prefers to go home w/homecare but will go to SNF if necessary. She will lydia w/, CM to f/u in am. Date Signed: 10/12/2016 03:10 PM Electronically Signed By:Lorraine White RN [facility] Progress Note CM Maria Victoria GAXIOLA Note Notes: Spoke w/pt re; SNF. would like CM to send referrals to [facility] in [facility] in [place]. Date Signed: 10/13/2016 05:29 PM Electronically Signed By:Lorraine White RN [facility] CM Progress Note CM Note CM Note Notes: More referral info sent to [facility] as requested ands [facility] for Kayla. Attempted to discuss dc poc w/pt but she asked me to come back later or tomorrow b/c nausea. Date Signed: 10/14/2016 03:17 PM Electronically Signed By:Delaney Josue RN [facility] CM Progress Note CM Note CM Note Notes: Spoke with J[facility] accepts patient. PASRR completed and faxed to facility. [facility] tomorrow pending pain control. Spoke with patient who agrees with the plan. Date Signed: 10/16/2016 01:10 PM Electronically Signed By:Iliana Hartman RN Intervention Information Intervention Type:*IM-Signed Date of Service:10/13/2016 11:37 AM Patient Type:Inpatient Staff Member:Cora Betancourt Hours: Discipline: Severity: Comment:
== END 2016-10-17 13:50 | DRG 982 ==
LOC: F3N 09:32 → F2N 19:21 → F3E 10-11 16:53
PROVIDERS: ADMIT Surgery; ATTEND Surgery
PROC: 30233N1 Transfusion of Nonautologous Red Blood Cells into Peripheral Vein, Percutaneous Approach (ICD-10-PCS; 2016-10-10)
PROC: 0DB80ZX Excision of Small Intestine, Open Approach, Diagnostic (ICD-10-PCS; principal; 2016-10-10 12:00)
PROC: 0DBL0ZX Excision of Transverse Colon, Open Approach, Diagnostic (ICD-10-PCS; principal; 2016-10-10 12:00)
PROC: 02HV33Z Insertion of Infusion Device into Superior Vena Cava, Percutaneous Approach (ICD-10-PCS; 2016-10-16)
DX: C49.A4 Gastrointestinal stromal tumor of large intestine (principal); D62 Acute posthemorrhagic anemia; C78.7 Secondary malignant neoplasm of liver and intrahepatic bile duct; M79.7 Fibromyalgia; Z72.0 Tobacco use
CPT/HCPCS: 97110-GP; 97116-GP; 97162-GP; 97165-GO; 97535-GO; C1751; G8978-GP-CK; G8979-GP-CI; G8987-GO-CK; G8988-GO-CI; J0694; J1100; J1170; J1200; J1335; J2001; J2250; J2370; J2405; J2704; J2765; J3010; P9016; P9040